=== PATIENT | male | born 1975 | race Caucasian/White ===

== ENCOUNTER 2020-01-21 13:24 | Emergency (ER) | payer OTHER, SELFPAY ==
[2020-01-21 13:29] VITALS: BP 153/84; PULSE 106; TEMP 36.7; O2SAT 99
[2020-01-21 13:39] VITALS: RESP 18
--- NOTE | 2020-01-21 13:45 | DI.US_ITS ---
EXAM: US LOWER EXTREMITY VENOUS RT CLINICAL HISTORY: Swelling, recent 18-hour plane ride. TECHNIQUE: Right lower extremity venous ultrasound performed using grayscale, color-flow, and spectr al Doppler analysis. COMPARISON: No exams were available for comparison FINDINGS: The right common femoral, femoral and popliteal veins demonstrate normal compressibility, augmentatio n, and color Doppler. The posterior tibial veins are patent.The saphenofemoral junction is unremarkab le. There is mild edema in the soft tissues. IMPRESSION: No DVT. DATA REPOSITORY:
--- NOTE | 2020-01-21 14:15 | ED.GENADUL_ITS ---
Discharge Plan Disposition Patient Disposition: HOME Condition: Stable Discharge Details Chief Complaint: Vascular Clinical Impression: Leg edema, right ED Provider: Sarbjit Vazquez Home Meds and New Rx's Prescriptions: No Action citalopram 10 mg Tablet 10 mg PO DAILY RF: 0 Discharge Instructions Additional Instructions: Ultrasound and blood work are unremarkable for DVT or other emergent process. I recommend elevation, rest, compression stockings as tolerated. Please watch for new or worsening symptoms and return to the ER for any concerns. Lastly, I do recommend establishing a local primary care provider and following up the next available appointment. Medical Decision Making 44-year-old gentleman presents with right lower leg swelling after traveling to and from [facility]. Primary concern is that of DVT. Patient appears well, nontoxic. Without chest pain or shortness of breath. Pulse of 106 in triage however pulse was 88 during my evaluation. No signs of erythema. Negative Homans sign. Will obtain routine laboratory values to assess WBCs as well as coags, will obtain ultrasound of the right lower extremity venous Doppler to rule out DVT. Patient comfortable with this plan Laboratory values and ultrasound unremarkable. Likely dependent edema without DVT or cellulitis. Imaging Data Radiologic Study: Imaging: Ultrasound Radiologist's impression: Doppler right lower extremity, negative for DVT. Edema present Lab Data Lab results reviewed: Yes I reviewed the patient's lab results. Lab results narrative: Laboratory Tests Range/Units 01/21/20 01/21/20 01/21/20 14:10 14:10 14:10 WBC (4.4-10.8) k/cumm 6.71 RBC (4.50-6.00) m/cumm 5.14 Hgb (13.5-17.5) g/dL 16.3 Hct (40.0-50.0) % 46.5 MCV (80-95) fL 90.5 MCH (27.0-33.0) pg 31.7 MCHC (32.0-36.0) g/dL 35.1 RDW (11.8-14.1) % 12.1 Plt Count (130-400) x1000/uL 294 MPV (8.0-11.0) fL 9.1 Immature Gran % % 0.1 Neutrophils % 65.4 Lymphocytes % 21.8 Monocytes % 11.9 Eosinophils % 0.7 Basophils % 0.1 Absolute Neutrophils (1.2-6.7) k/cumm 4.38 Absolute Lymphocytes (1.2-3.4) k/cumm 1.46 Absolute Monocytes (0.11-0.7) k/cumm 0.80 H Absolute Eosinophils (0.0-0.7) k/cumm 0.05 Absolute Basophils (0.0-0.2) k/cumm 0.01 PT (9.3-11.0) sec 10.1 INR (0.9-1.1) 1.0 APTT (21.0-31.4) sec 25.4 Sodium (136-145) mmol/L 140 Potassium (3.5-5.1) mmol/L 3.8 Chloride (98-107) mmol/L 103 Carbon Dioxide (21.0-32.0) mmol/L 24.9 Anion Gap (3-11) mmol/L 12.1 H BUN (7-18) mg/dL 15 Creatinine (0.70-1.30) mg/dL 0.80 Estimated GFR/1.73 m2 (mL/min/1.73m2) >= 60.00 Glucose (74-106) mg/dL 112 H Calcium (8.5-10.1) mg/dL 8.3 L Total Bilirubin (0.2-1.0) mg/dL 0.7 AST (15-37) U/L 30 ALT (16-63) U/L 67 H Alkaline Phosphatase (46-116) U/L 72 Total Protein (6.4-8.2) g/dL 7.7 Albumin (3.4-5.0) g/dL 4.3 HPI General Mode of arrival: ambulatory . Date/Time Provider Initiated Documentation: 01/21/20 13:47 . Limitations to Documentation: no limitations . Information obtained by: patient . HPI Narrative: 44-year-old gentleman presents with atraumatic right lower extremity swelling after having traveled to and from [place] over the past 14 days, then a secondary flight from [place]. The most recent travel was over this weekend. He denies any chest pain or shortness of breath. He denies any pain in his leg. Denies fever or rash. Primary concern is that of DVT Related Data Home Medications Medication Instructions Recorded Confirmed citalopram 10 mg PO DAILY 01/21/20 01/21/20 Allergies Allergy/AdvReac Type Severity Reaction Status Date / Time amoxicillin [From Augmentin] Allergy Unverified 01/21/20 13:30 clavulanic acid Allergy Unverified 01/21/20 13:30 [From Augmentin] General Stated Complaint: Vascular RODRIGUE: 3 Review of Systems Constitutional Constitutional: Denies fever(s) Cardiovascular Cardiovascular: Denies chest pain and Denies dyspnea Respiratory Respiratory: Denies cough and Denies dyspnea Musculoskeletal Musculoskeletal: Denies myalgias Integumentary/Breasts Skin/Breast: Denies rash [facility] Social History Smoking/Tobacco Use Status: Never Alcohol Intake: current Alcohol Intake frequency: a few times a week Drug use: Never Substance use type: does not use Do you feel safe at home: Yes Do you feel safe in your relationship?: Yes Exam Const General: cooperative, healthy appearing, comfortable and no acute distress Orientation: alert and awake HENMT Head: normal to inspection, normocephalic and atraumatic Mouth: moist mucous membranes Eyes Conjunctivae: conjunctivae normal Neck Neck: normal visual inspection, trachea midline and supple Resp Effort & Inspection: normal respiratory effort and able to speak in complete sentences Auscultation: clear to auscultation bilaterally Cardio Rate: regular rate Rhythm: regular rhythm Skin General skin exam: no rashes or lesions noted Neuro General: alert, awake, moves all extremities and no focal motor deficits Motor: muscle tone normal throughout Sensory Exam: no sensory deficits noted Extrem Right lower extremity: lower leg Details: non-pitting edema Details: 1+ (Negative Homans sign); no erythema and no tenderness Psych Appearance: grossly normal Mental Status: mental status grossly normal Course Vital Signs Vital signs: Vital Signs Temperature 36.7 C 01/21/20 13:29 Pulse 106 H 01/21/20 13:29 Blood Pressure 153/84 H 01/21/20 13:29 Pulse Oximetry 99 01/21/20 13:29 Temperature 36.7 C 01/21/20 13:29 Temperature Source Temporal Artery Scan 01/21/20 13:29 Pulse 106 H 01/21/20 13:29 Respiratory Rate 18 01/21/20 13:39 Respiratory Effort Non-Labored 01/21/20 13:39 Respiratory Depth Normal 01/21/20 13:39 Respiratory Pattern Normal 01/21/20 13:39 Blood Pressure 153/84 H 01/21/20 13:29 Blood Pressure Position Sitting 01/21/20 13:29 Pulse Oximetry 99 01/21/20 13:29 Oxygen Delivery Method Room Air 01/21/20 13:29 Oxygen Flow Rate 0 01/21/20 13:29 Pain Level 0 01/21/20 13:29
[2020-01-21 14:18] LABS: Abs Immature Grans 0.01 k/cumm (0.0-0.09); Absolute Basophil Count 0.01 k/cumm (0.0-0.2); Absolute Eosinophil Count 0.05 k/cumm (0.0-0.7); Absolute Lymphocyte Count 1.46 k/cumm (1.2-3.4); Absolute Neutrophil Count 4.38 k/cumm (1.2-6.7); Basophils % 0.1; Eosinophils % 0.7; HCT 46.5 % (40.0-50.0); HGB 16.3 g/dL (13.5-17.5); Immature Grans % 0.1 %; Lymphocytes % 21.8; Mean Corp. HGB Concentration 35.1 g/dL (32.0-36.0); Mean Corpuscular Hemoglobin 31.7 pg (27.0-33.0); Mean Corpuscular Volume 90.5 fL (80-95); Mean Platelet Volume 9.1 fL (8.0-11.0); Monocytes % 11.9; Neutrophils % 65.4; Platelet Count 294 x1000/uL (130-400); RBC 5.14 m/cumm (4.50-6.00); RBC Distribution Width 12.1 % (11.8-14.1); White Blood Cell Count 6.71 k/cumm (4.4-10.8)
[2020-01-21 14:38] LABS: PTT Activated 25.4 sec (21.0-31.4); Prothrombin Time 10.1 sec (9.3-11.0)
[2020-01-21 14:46] LABS: ALT 67 U/L (16-63); AST 30 U/L (15-37); Albumin 4.3 g/dL (3.4-5.0); Alkaline Phosphatase 72 U/L (46-116); Anion Gap 12.1 mmol/L (3-11); BUN 15 mg/dL (7-18); Bilirubin, Total 0.7 mg/dL (0.2-1.0); CO2 24.9 mmol/L (21.0-32.0); Calcium 8.3 mg/dL (8.5-10.1); Chloride 103 mmol/L (98-107); Glucose 112 mg/dL (74-106); Potassium 3.8 mmol/L (3.5-5.1); Sodium 140 mmol/L (136-145); Total Protein 7.7 g/dL (6.4-8.2)
== END 2020-01-21 15:05 | disposition home or self-care (01) ==
LOC: ER 15:18
PROVIDERS: Emergency Provider Physician Assistant
DX: R60.0 Localized edema (principal)
CPT/HCPCS: 36415; 80053; 99284; 85025; 85610; 85730; 93971

== ENCOUNTER 2020-12-18 13:29 | Outpatient (CLI) | payer OTHER, SELFPAY ==
[2020-12-20 12:45] LABS: COVID-19 RT-PCR UVMMC Result Negative (Negative)
== END 2020-12-18 13:30 | disposition home or self-care (01) ==
LOC: LBO 13:30
PROVIDERS: PCP Family Medicine; Visit Provider Family Medicine
DX: Z20.822 Contact with and (suspected) exposure to COVID-19 (principal)
CPT/HCPCS: U0003

== ENCOUNTER 2021-01-07 02:51 | Outpatient (CLI) | payer OTHER, SELFPAY ==
[2021-01-08 01:08] LABS: COVID-19 RT-PCR UVMMC Result Negative (Negative)
== END 2021-01-07 02:52 | disposition home or self-care (01) ==
LOC: LBO 02:53
PROVIDERS: PCP Family Medicine; Visit Provider Family Medicine
DX: Z20.822 Contact with and (suspected) exposure to COVID-19 (principal)
CPT/HCPCS: U0003

== ENCOUNTER 2021-03-02 01:25 | Outpatient (CLI) | payer OTHER, SELFPAY ==
--- NOTE | 2021-03-02 07:15 | DI.RAD_ITS ---
EXAM: XR KNEE LT 3V AP,LAT,JULI CLINICAL HISTORY: Worsening L knee pain,M25.562 TECHNIQUE: COMPARISON: CR XR KNEE RT 3V AP,LAT,JULI from 03/02/2021 FINDINGS: Three views were obtained. There appears to be mild thinning of the cartilaginous joint spaces of me dial and lateral tibiofemoral joints. Mild marginal osteophyte formation noted at all 3 joints of th e knee. There is a probable small knee joint effusion. No other bony or soft tissue abnormality see n. IMPRESSION: Mild degenerative changes as described above. RADIATION DOSE DELIVERED: Total DLP
--- NOTE | 2021-03-02 07:15 | DI.RAD_ITS ---
EXAM: XR KNEE RT 3V AP,LAT,JULI CLINICAL HISTORY: Known mensical tear, needs new film for orth appt,RT KNEE PAIN,S83.206A TECHNIQUE: COMPARISON: No exams were available for comparison FINDINGS: Three views were obtained. There appears to be mild narrowing of the medial and lateral tibiofemoral cartilaginous joint spaces. No gross joint effusion seen on the lateral view. No bony abnormality seen. IMPRESSION: Probable mild cartilaginous thinning of tibiofemoral joints, presumably on a degenerative basis.. RADIATION DOSE DELIVERED: Total DLP
== END 2021-03-02 01:45 ==
PROVIDERS: PCP Family Medicine; Visit Provider Family Medicine
DX: M25.562 Pain in left knee (principal); M17.12 Unilateral primary osteoarthritis, left knee; M25.561 Pain in right knee; M94.8X6 Other specified disorders of cartilage, lower leg
CPT/HCPCS: 73562

== ENCOUNTER 2021-03-25 01:12 | Outpatient (CLI) | payer OTHER, SELFPAY ==
--- NOTE | 2021-03-25 07:30 | DI.MRI_ITS ---
Exam(s) MR LOWER JOINT LT WO EXAM: MR LOWER JOINT LT WO CLINICAL HISTORY: KNEE PAIN, INTERNAL DERANGEMENT,M23.92 TECHNIQUE: Multiplanar multisequence MRI of the knee was performed. COMPARISON: CR XR KNEE LT 3V AP,LAT,JULI from 03/02/2021 FINDINGS: EFFUSION: There is a small-moderate size knee joint effusion. There is no Garnett cyst in the poplitea l fossa. MARROW:There is no evidence of fracture, bone contusion, nor osteochondral defects.. There are no si gnificant osseous lesions. PATELLOFEMORAL COMPARTMENT: The quadriceps tendon is intact. The patellar ligament is intact. There is thinning of the retropatellar cartilage most prominent at the mid and lateral facets. There is a tiny focus of intra-articular signal abnormality in the posterior aspect of mid patellar level, this measuring 2 millimeters. More prominent hyaline cartilage thinning is noted more inferiorly at the level of the inferior pole of patella. There are no patellar retinacular tears evident. CRUCIATE LIGAMENTS: The anterior cruciate ligament is intact.The posterior cruciate ligament is intac t. MEDIAL COMPARTMENT/MEDIAL MENISCUS: There is grade 2 signal in the posterior horn of the medial menis cus. This does not violate an articular surface and is consistent with some myxoid degeneration. No meniscocapsular separation. No mid no meniscal extrusion. The meniscal root is intact. However, t here is a significant focus of [place] cartilage thinning over the mid inner aspect of the femoral c ondyle over the posterior weight-bearing surface directly over the posterior horn medial meniscus. T here is no osteochondral defect nor subarticular intraosseous edematous level.. MEDIAL COLLATERAL LIGAMENT: Intact LATERAL COMPARTMENT/LATERAL MENISCUS: There is a complex tear of the posterior horn of the lateral me niscus which exhibits both horizontal and oblique components. Violates inferior articular surface. The tearing also involves the anterior horn. There is mild extrusion. No intrusion of meniscal subs tance. However, there is a partially septated degenerative meniscal cyst interposed between the torn lateral meniscus and the anterior aspect of the fibular collateral ligament and iliotibial band. Th is measures 2.4 cm craniocaudal by 1.7 cm AP by 0.7 cm wide.There is a no subarticular intraosseous e aries although there is a small degenerative subarticular cyst measuring 4 x 3 millimeters in the mid posterior aspect of the tibial plateau subjacent to the PCL insertion site. ILIOTIBIAL BAND: Intact LATERAL COLLATERAL LIGAMENT COMPLEX: The fibular collateral ligament is intact. The biceps femoris t endon is intact.There is small amount of fluid in the popliteus tendon sheath but no tear of this str ucture. IMPRESSION: 1. There is a complex tear of the lateral meniscus involving both the anterior posterior horns and as sociated with a degenerative meniscal cyst with measurements as above, this interposed between the to rn lateral meniscus and the lateral structures such as fibular collateral ligament and extending to c ontact the posterior aspect of the iliotibial band. There is mild hyaline cartilage loss over the ov erlying lateral femoral condyle and marginal osteophyte off the outer aspect and inner aspect of the condyle. 2. Although there is no tear of the medial meniscus, there is a significant focus of [place] cartila ge loss over the posterior weight-bearing surface of the medial femoral condyle overlying the posteri or horn of the medial meniscus (which itself is intact). 3. Cruciate and collateral ligaments are intact, as is the iliotibial band. 4. There is degenerative change in the [place] cartilage over the posterior patella, this thinning m ore evident inferiorly than superiorly. 5. There is a moderate-sized knee joint effusion. There is no Garnett cyst in the popliteal fossa. DATA REPOSITORY:
== END 2021-03-25 01:32 ==
PROVIDERS: PCP Family Medicine; Visit Provider Student in an Organized Health Care Education/Training Program
DX: M25.562 Pain in left knee (principal); M23.92 Unspecified internal derangement of left knee; M25.462 Effusion, left knee; S83.272A Complex tear of lateral meniscus, current injury, left knee, initial encounter; M94.8X6 Other specified disorders of cartilage, lower leg
CPT/HCPCS: 73721

== ENCOUNTER 2021-10-18 02:47 | Outpatient (CLI) | payer OTHER, SELFPAY ==
[2021-10-18 10:36] LABS: Source Nasal/Nares
[2021-10-18 14:19] LABS: COVID-19 PCR Negative (Negative)
== END 2021-10-18 02:48 | disposition home or self-care (01) ==
LOC: LBO 02:48
PROVIDERS: PCP Family Medicine; Visit Provider Student in an Organized Health Care Education/Training Program
DX: Z20.822 Contact with and (suspected) exposure to COVID-19 (principal)
CPT/HCPCS: 87635

== ENCOUNTER 2021-10-19 10:26 | Day surgery (SDC) | payer OTHER, SELFPAY ==
--- NOTE | 2021-10-19 07:42 | W.PM.DSUDISC ---
Discharge Plan Disposition Patient Disposition: HOME Condition: Good Discharge Details Reason For Visit: Left Knee Arthroscopy Attending Provider: Aleksandr Romero Primary Care Provider: Eduardo Chatman Home Meds and New Rx's Prescriptions: New hydrocodone-acetaminophen 5-325 mg tablet 1 tab PO Q6H PRNQty: 5 RF: 0 acetaminophen 500 mg capsule 1,000 mg PO Q8H PRN PRNQty: 30 RF: 0 Continued multivitamin Tablet 1 tab PO DAILY RF: 0 diclofenac sodium [Voltaren] 1 % gel 2 g topical QID PRN (Reason: knee pain) RF: 0 escitalopram oxalate 10 mg tablet 10 mg PO DAILY Qty: 90 RF: 3 lorazepam 0.5 mg tablet 0.5 mg PO DAILY PRN (Reason: anxiety) Qty: 30 RF: 0 ibuprofen 600 mg Tablet 600 DAILY RF: 0 Discharge Instructions Stand Alone Forms: Nick Knee Arthroscopy Equipment/Supplies: Partial Weight Bearing Crutches Activity:: Activity as Tolerated Remove Dressings/Wound Care:: 72 hours Shower/Bathe:: 72 hours Diet:: As Tolerated Discharge Orders Discharge Orders: Discharge Order (Routine); Ordered 10/19/21 Ordered By: Marita Centeno DS: Diagnosis Discharge Diagnosis (1) Tear of lateral meniscus of left knee: Status: Acute (2) Internal derangement of left knee: Status: Acute
[2021-10-19 10:46] VITALS: BP 144/98; PULSE 86; RESP 16; TEMP 36.4; O2SAT 97
--- NOTE | 2021-10-19 10:56 | ANES.PREOP_ITS ---
General Info Date of Service Date Performed: 10/19/21 Height: 6 ft 2.75 in Weight: 126.9 kg Body Mass Index (BMI): 35.2 Surgical Procedure: Operation Date: 10/19/21 13:10 Proposed Procedures Side Surgeon p LT KNEE ARTHROSCOPIC PARTIAL LATERAL MENISECTOMY Left Aleksandr Romero MD Meds Allergies and Home Medications Allergies Allergy/AdvReac Type Severity Reaction Status Date / Time amoxicillin [From Augmentin] Allergy Severe rash Verified 10/19/21 10:48 clavulanic acid Allergy Verified 10/19/21 10:48 [From Augmentin] Home Medication Medication Instructions Recorded escitalopram oxalate 10 mg tablet 10 mg PO DAILY #90 tab 06/01/20 lorazepam 0.5 mg tablet 0.5 mg PO DAILY PRN #30 tab 06/01/20 diclofenac sodium 1 % topical gel 2 g TOPICAL QID PRN 03/01/21 multivitamin 1 tab PO DAILY 03/01/21 ibuprofen 600 DAILY 10/19/21 Current Visit Medications: Current Medications Generic Name Dose Route Start Last Admin Trade Name Freq PRN Reason Stop Dose Admin Acetaminophen 650 mg 10/19/21 07:39 Acetaminophen 325 Mg Tab PO Q4H PRN PRN Ringer's Solution 1,000 mls @ 80 mls/hr 10/19/21 06:00 IV 11/17/21 23:59 INFUSION KRISH Cefazolin Sodium 3,000 mg/ 100 mls @ 200 mls/hr 10/19/21 06:00 Sodium Chloride IVPB 10/19/21 16:00 PREOP KRISH Ondansetron HCl 4 mg/ Sodium 52 mls @ 200 mls/hr 10/19/21 07:39 Chloride IVPB Q6H PRN PRN IV Miscellaneous Supplies 1 each 10/19/21 06:00 Iv Access IV 11/17/21 23:59 DIRECTED KRISH Oxycodone HCl 5 mg 10/19/21 07:39 Oxycodone 5 Mg Tab PO Q3H PRN PRN Pain Sodium Chloride 0 ml 10/19/21 06:00 Normal Saline Flush 10 Ml Syr IV 11/17/21 23:59 PRN PRN Sodium Chloride 0 ml 10/19/21 06:00 Normal Saline 10 Ml Vial IJ 11/17/21 23:59 DIRECTED PRN Sterile Water 0 ml 10/19/21 06:00 Water,Injection,Sterile 10 Ml Vial IJ 11/17/21 23:[address] [facility] Active Problems Active Problems: Problem Status Onset Code Tear of lateral meniscus of left knee S83.282A Localized osteoarthritis of left knee M17.12 Internal derangement of left knee M23.92 Right knee meniscal tear S83.206A Anxiety disorder F41.9 Medical History Active Problem List Tear of lateral meniscus of left knee (Acute) Localized osteoarthritis of left knee (Acute) Internal derangement of left knee (Acute) Right knee meniscal tear (Acute) Anxiety disorder (Acute) Surgical History Surgical History History of excision of pilonidal cyst Tenosynovitis of right hand following dog bite Tobacco Smoking/Tobacco Use Status: Never Passive smoking exposure: No Alcohol Alcohol Intake: current Alcohol intake frequency: 3 or more drinks per day Alcohol type: wine Substance Use Substance use: Never Substance use type: does not use Vital Signs and Lab Results Vital Signs Most Recent Vital Signs in EMR: Most Recent Vital Signs Temp Pulse Resp BP Pulse Ox 36.4 C L 86 16 144/98 H 97 10/19/21 10:46 10/19/21 10:46 10/19/21 10:46 10/19/21 10:46 10/19/21 10:46 Lab Results Blood Type / Crossmatch: No Data to Display Complete Blood Count: No Data to Display Complete Metabolic Panel: No Data to Display Liver Function Panel: No Data to Display Coagulation Panel: No Data to Display Cardiac Panel: No Data to Display Arterial Blood Gas: No Data to Display Venous Blood Gas: No Data to Display Pancreas Panel: No Data to Display Thyroid Panel: No Data to Display Infectious Disease: Coronavirus (COVID-19)(PCR) Negative (Negative) 10/18/21 10:01 10/18/21 Coronavirus 2019 Source Nasal/Nares 10/18/21 10:01 10/18/21 Blood Cultures: No Data to Display Toxicology Panel: No Data to Display Anesthesia Assessment and Plan Anesthesia History Personal History: No History of Anesthesia Complications Family History: No Family History of Anesthesia Complications Exercise Tolerance Exercise Tolerance: Metabolic Equivalents>4 Pertinent Negatives Pertinent Negatives: No Symptoms of GERD, No Major Cardiovascular Symptoms or Complaints and No Major Pulmonary Symptoms or Complaints Cardiac & Pulmonary Exam Cardiac Exam: Normal S1/S2 Heart Sounds Pulmonary Exam: Clear Bilateral Breath Sounds Implantable Cardiac Device Does patient have a Pacemaker or an ICD?: No Airway Exam Known Difficult Airway: No Mallampati Class: 2 Mouth Opening: Normal (> 3cm) Thyromental Distance: Greater than 3 cm Neck Range of Motion: Full ROM Neck Circumference: Normal Teeth Condition: Normal Dentition ASA Classification ASA Score: ASA 2 Emergency Case?: No NPO Status NPO Status: NPO Clears >2 hours, Solids >8 hours Anesthesia Plan Resuscitation Status: Full Code Anesthesia Technique: Spinal Anesthesia Airway Planned: Natural Airway Monitors Used: Standard Monitors
[2021-10-19 10:59] VITALS: BMI 35.2
[2021-10-19] MEDS: Lactated Ringers 1,000 ML 80 ML IV (11:25)
[2021-10-19] MEDS: ceFAZolin 3,000 MG in Normal Saline 100 ML 200 MG IVPB (12:09)
[2021-10-19] MEDS: Bupivacaine 0.5% Pres-Free 30 ML VIAL (12:57)
[2021-10-19 13:25] VITALS: BP 122/82; PULSE 78; RESP 16; TEMP 36.7; O2SAT 98
[2021-10-19 13:55] VITALS: BP 122/82; PULSE 62; RESP 16; TEMP 36.3; O2SAT 98
--- NOTE | 2021-10-19 14:42 | W.ANESPOSTOP ---
Postoperative Evaluation Date, Time and Location Date Performed: 10/19/21 Time Performed: 14:15 Patient Location: Day Surgery Unit Vital Signs Most Recent Imported Vital Signs: Most Recent Vital Signs Temp Pulse Resp BP Pulse Ox 36.7 C 78 16 122/82 98 10/19/21 13:25 10/19/21 13:25 10/19/21 13:25 10/19/21 13:25 10/19/21 13:25 Pain Score Most Recent Pain Score: Most Recent Pain Score Pain Level 0 10/19/21 13:25 Assessment Mental Status: Awake (Alert & Oriented to Patient Baseline) Airway and Respiratory Function: Patent airway with normal (patient baseline) respiratory exam Cardiovascular Function: Hemodynamically Stable Hydration Status: Adequately Hydrated Nausea & Vomiting: No Nausea or Vomiting Pain: Pt. Denies Any Pain Peripheral Nerve Block: Patient did not receive a nerve block
--- NOTE | 2021-10-19 22:57 | W.PM.OP ---
Date of service: 10/19/21 Time of Service: 13:57 Operative Note Operative Note DATE OF PROCEDURE: 10/19/21 PRE-OP DIAGNOSIS: Left Knee Lateral Meniscus Tear POST-OP DIAGNOSIS: same Grade IV Chondromalacia, Lateral Tibia PROCEDURE: Arthroscopic Partial Lateral Menisectomy, Left Knee SURGEON: Aleksandr Romero ANESTHESIA TYPE: Spinal Refer to Anesthesia Record ESTIMATED BLOOD LOSS: 0 PATHOLOGY: none sent TOURNIQUET TIME: 0 COMPLICATIONS: None Patient was transported to: PACU Patient's condition: stable Indications: I have seen Emery in clinic for symptoms of a meniscus tear. This was confirmed based on MRI and exam findings. Nonoperative measures were exhausted but disability and pain persisted. I discussed knee arthroscopy with meniscal intervention with the patient. I reviewed the risks of the procedure to include, but not limited to, bleeding, infection, pain, stiffness, damage to nerves or vessels, recurrence, blood clot. Despite these risks, the patient elected to proceed. Findings: A diagnostic arthroscopy was performed with the following findings: Suprapatellar Pouch: Moderate inflammation, No loose bodies Medial Compartment: No significnat mensical tearing, Intact meniscal root, Grade II chondromalacia of the posterior medial femur, No loose bodies Notch: ACL and PCL were intact Lateral Compartment: Complex tear of the lateral meniscus from posterior to anterior horn with a primary complete horizontal component, Intact meniscal root, Grade IV chondromalacia of the tibia and Grade III of the femur, mostly posterior, No loose bodies Patellofemoral Compartment: Grade II chondromalacia of the trochlea and patellar apex, [No apparent patellar maltracking] Procedure Description: Emery was greeted in the preoperative holding area where the correct side was identified and marked. The consent was reviewed with the patient and signed. The history and physical was updated. All questions were answered. He was taken back to the operating room. The patient was placed into the supine position on the operating room table. All bony prominences were well padded. Prophylactic antibiotics in the form of Cefazolin were administered. The left leg was then prepped with Chloraprep and draped in a standard fashion with stockinette and extremity drape. A timeout to confirm correct identity, side and site, procedure, allergies, anesthesia, and medical concerns was performed. The leg was placed into a pneumatic leg najera, [id number]. A standard lateral portal was made at the lateral border of the patella tendon in line with the inferior pole of the patella, soft spot. The skin and deep tissue was incised sharply and the blunt trochar was inserted atraumatically. A diagnostic arthroscopy was performed and the findings are listed above. The suprapatellar pouch had moderate inflammatory change. The patellofemoral articulation showed Grade II chondromalacia with good tracking. The lateral gutter had no loose bodies but small osteophytes and the medial gutter had no loose bodies but a large osteophyte. The knee was brought into some valgus stress in extension to open the medial compartment. A medial portal was made, localized by a spinal needle. The portal was created with an #11 blade through skin and capsule under direct visualization avoiding any meniscal injury. A probe was then inserted into the medial compartment. The medial compartment was fully inspected. The chondral surface of the tibia showed no significant chondromalacia and the surface of the femur showed Grade II/III chondromalacia over the posterior medial tibia. The medial meniscus had no meniscal tear. The notch was then inspected which showed an intact ACL and an intact PCL. The leg was then brought into a figure of 4 position. The lateral compartment was fully inspected with the arthroscope and a probe. The chondral surface of the lateral femur showed Grade II/III chondromalacia. The chondral surface of the lateral tibia showed Grade IV chondromalacia throughout the majority of the tibia. The lateral meniscus had a complex tear with a primary horizontal configuration with large displaced component extending from just lateral to the root around the entire meniscus just lateral to the anterior root. After evaluation, the meniscus was debrided down to a stable base using a series of biters and arthroscopic urmila. It was probed afterwards to confirm that the tear had been removed and the meniscus was stable. The arthroscope was brought back into the suprapatellar pouch and the leg was in full extension. The knee was thoroughly irrigated with the arthroscopic fluid on high flow and pressure. Inflow was stopped and excess fluid was removed. The wounds were closed with 4-0 Nylon. They were dressed with Xeroform, 4x4 gauze, ABD pad, Kerlix and an TERRY wrap. A cryo-cuff was applied. The patient tolerated the procedure well and was returned to the Same Day Surgery area in a stable condition suffering no known complication.
== END 2021-10-19 15:20 | disposition home or self-care (01) ==
PROVIDERS: PCP Family Medicine; Visit Provider Student in an Organized Health Care Education/Training Program
PROC: (CPT 29870; principal; 2021-10-19 13:00)
DX: M23.262 Derangement of other lateral meniscus due to old tear or injury, left knee (principal); M94.262 Chondromalacia, left knee; E78.5 Hyperlipidemia, unspecified
CPT/HCPCS: 29881; J0690; J1885; J2405

== ENCOUNTER 2025-08-07 04:16 | Outpatient (CLI) | payer OTHER, SELFPAY ==
[2025-08-07 09:02] LABS: ALT 37 U/L (16-63); AST 21 U/L (15-37); Albumin 3.9 g/dL (3.4-5.0); Alkaline Phosphatase 73 U/L (46-116); Anion Gap 10.2 mmol/L (3-11); BUN 14 mg/dL (7-18); Bilirubin, Total 0.9 mg/dL (0.2-1.0); CO2 26.8 mmol/L (21.0-32.0); Calcium 8.9 mg/dL (8.5-10.1); Calculated LDL 151 mg/dL (<100); Chloride 102 mmol/L (98-107); Cholesterol 228 mg/dL (<200); Estimated GFR 107.82 (mL/min/1.73m2); Glucose 114 mg/dL (74-106); HDL Cholesterol 36 mg/dL (>or=40); Potassium 4.0 mmol/L (3.5-5.1); Sodium 139 mmol/L (136-145); Total Protein 7.7 g/dL (6.4-8.2); Triglyceride 209 mg/dL (<150)
== END 2025-08-07 04:17 | disposition home or self-care (01) ==
LOC: LBO 04:16
PROVIDERS: PCP Family Medicine; Visit Provider Family Medicine
DX: E78.5 Hyperlipidemia, unspecified (principal)
CPT/HCPCS: 36415; 80053; 80061

== ENCOUNTER 2025-08-29 04:20 | Outpatient (CLI) | payer OTHER, SELFPAY ==
--- NOTE | 2025-08-29 11:20 | DI.RAD_ITS ---
Exam(s) RF BARIUM SWALLOW EXAM: RF BARIUM SWALLOW CLINICAL HISTORY: Hiccuping and coughing with swallowing,DYSPHAGIA,R13.10 TECHNIQUE: 2D and realtime digital imaging was performed. CONTRAST MATERIAL: Thick and thin barium and barium tablet were administered. COMPARISON: No exams were available for comparison FINDINGS: The PA and lateral chest films show normal heart size and clear lung alvarado. The lateral choir director view of the neck shows degenerative changes. Esophagus: The patient swallowed barium without difficulty. Noevidence for mucosal erosions. Nofold thickening. No mass is visible. There is significant narrowing of the distal esophagus at the GE junction. There is no evidence of ulceration or irregularity. The barium tablet did not pass through this area. There is mild dilatation of the distal esophagus. Motility: There is a normal primary stripping wave. Mild tertiary contractions were noted. There is no hiatal hernia. Nogastroesophageal reflux was observed during the exam. Stomach and small bowel are unremarkable as visualized. IMPRESSION: Smooth stricture at the GE junction. The barium tablet does not pass through. RADIATION DOSE DELIVERED: lucero Haines=76.6 mGy
[2025-08-29] MEDS: Barium Sulfate 700 MG TAB PO (11:26)
[2025-08-29] MEDS: Simethicone/Sod Bicarb/Cit Ac, 4 gram PACKET 1 PACKET PO (11:27)
[2025-08-29] MEDS: Barium Sulfate 60% W/V 355 ML BTL PO (11:28)
[2025-08-29] MEDS: Barium Sulfate 98% W/W 140 ML BTL PO (11:29)
== END 2025-08-29 04:40 ==
LOC: DI 04:20
PROVIDERS: PCP Family Medicine; Visit Provider Family Medicine
DX: R13.10 Dysphagia, unspecified (principal)
CPT/HCPCS: 74221; J3490

== ENCOUNTER 2025-10-03 08:26 | Day surgery (SDC) | payer OTHER, SELFPAY ==
--- NOTE | 2025-10-02 15:40 | PDOC.DSDIS_ITS ---
Date of service: 10/03/25 Discharge Plan Disposition Patient Disposition: Home Condition: Good Discharge Details Reason For Visit: EGD Attending Provider: Dylan Reece Primary Care Provider: Eduardo Chatman Home Meds and New Rx's Prescriptions: Continued multivitamin Tablet 1 tab PO DAILY lorazepam 0.5 mg tablet 0.5 mg PO DAILY PRN (Reason: anxiety) Qty: 30 0RF Patient Comments: not used in over a year atorvastatin [Lipitor] 40 mg tablet 40 mg PO QHS Qty: 90 3RF pantoprazole [Protonix] 40 mg tablet,delayed release (DR/EC) 40 mg PO DAILY Qty: 90 3RF escitalopram oxalate 10 mg tablet 10 mg PO DAILY Qty: 90 3RF ibuprofen 600 mg Tablet 600 mg PO DAILY acetaminophen 500 mg capsule 1,000 mg PO Q8H PRN PRNQty: 30 0RF Discharge Instructions Instructions: Dysphagia Additional Instructions: Emery, I hope you feel well after the EGD. I don't see a discreet stricture on the EGD. I did pass a balloon dilator to 2 cm just to see if it makes any difference. I also took a few biospies to see if there is any h pylori in your stomach as well as biopsies of the esophagus to look for eosiniphilic esophagitits. Those will take a week or so to result. Once I have that information, I will be in touch with any other recommendations. If you need anything in the meantime, please do not hesitate to ask at any point. 1. If tolerated, consume a soft, low fiber diet for 1-2 days. 2[address] Do not drive, drink alcohol, operate machinery, make critical decisions, or do activities that require coordination or balance for 24 hours. 3. You may experience a sore throat for 24 to 48 hours. You may use throat lozenges or gargle with warm salt water to relieve the discomfort. 4. Because air was put into your stomach during the procedure, you may experience some belching. 5. Go directly to the emergency room if you notice any of the following: Develop chills (warm to touch), or if you have a thermometer and your temperature is above 101 Difficulty breathing or difficultly swallowing Persistent vomiting Severe abdominal pain, other than gas cramps Severe chest pain Black, tarry stools Any bleeding – exceeding one tablespoon 6. Call your physician if the site where your intravenous was started becomes red, swollen, painful, and warm to touch. 7. Your physician has reviewed your pre-procedure medications. Please continue to take those medications as previously ordered. You will be given specific information/education regarding any changes to your medications before leaving. Stand Alone Forms: Anesthesia Discharge Inst., [facility] (DSU), Portal Information Activity:: Activity as Tolerated Diet:: As Tolerated Discharge Orders Discharge Orders: Discharge Order (Routine); Ordered 10/02/25 Ordered By: Dylan Reece DS: Diagnosis Discharge Diagnosis (1) Esophageal stricture: Status: Acute Asessment and Plan: Generally normal appearing EGD; follow up on biopsy results and maybe referral top [facility] [place]
--- NOTE | 2025-10-02 15:41 | W.PM.ENDDOP ---
Date of service: 10/03/25 Time of Service: 10:30 Endoscopy Report DATE OF PROCEDURE: 10/03/25 PRE-OP DIAGNOSIS: Dysphagia POST-OP DIAGNOSIS: same PROCEDURE: EGD with biopsies SURGEON: Dylan Reece ANESTHESIA TYPE: General:No Airway ESTIMATED BLOOD LOSS: 5 PATHOLOGY: other (Nondirected biopsies of gastric antrum and body, nondirected biopsies of esophagus) COMPLICATIONS: None DISPOSITION: same day INDICATIONS: Emery is a 50-year-old man who has been experiencing dysphagia. He underwent EGD that demonstrated retained barium pill at lower esophagus concerning for stricture PROCEDURE START TIME: 09:48 PROCEDURE END TIME: 10:01 FINDINGS: No evidence of discrete esophageal stricturing PROCEDURE DESCRIPTION: After the initiation of anesthesia, and with the assistance of a bite block, I advanced a standard gastroscope through the mouth past the hypopharynx and into the esophagus. Under the direct vision of the scope, I advanced down the esophagus towards the stomach. The upper, mid, and lower esophagus were all normal in course and caliber. The GE junction appeared closed. I am able to traverse this with ease. Once in the stomach, I performed retroflexion. I did not appreciate any signs of hiatal hernia. The remainder of the stomach appeared normal and healthy. I brought the camera back up to the GE junction. The Z-line was mostly regular, measured about 38 cm past the incisors. Again, the camera passes across this area with no difficulty. Given the findings of the barium swallow, I did think it was prudent to inflated balloon. Therefore, I passed 18 to 20 mm balloon dilator across the lower esophageal sphincter. Great care was taken to ensure that it was appropriately positioned. The balloon was inflated to 18 mm and held for short period of time. The balloon was then deflated, and the camera was passed across the GE junction. There is no evidence of any mucosal disruption. The camera was repositioned, and the balloon was brought up to 20 mm. This was also held before deflation. At this point, the balloon was withdrawn, and the camera was passed across this a few times. Again, I saw no evidence of any mucosal disruption that would support the diagnosis of a true esophageal stricture. I did perform some cold forceps nondirected biopsies of the gastric antrum and body to rule out Helicobacter pylori as a source of his dysphagia. There was minimal bleeding from those sites. I brought the camera back up along the length of the esophagus 1 last time. I saw no other evidence of any esophageal pathology. I did perform some nondirected biopsies of the esophagus to rule out microscopic esophagitis as a source of the symptoms. I then passed the camera back down into the stomach and emptied it completely before removal.
[2025-10-03 08:45] VITALS: BP 140/85; PULSE 72; RESP 16; TEMP 36.6; O2SAT 98
[2025-10-03] MEDS: Lactated Ringers 1,000 ML 80 ML IV (08:51)
[2025-10-03 09:36] VITALS: BMI 36.5
--- NOTE | 2025-10-03 09:36 | ANES.PREOP_ITS ---
General Info Date of Service Date Performed: 10/03/25 Height: 6 ft 3 in Weight: 132.6 kg Body Mass Index (BMI): 36.5 Surgical Procedure: Operation Date: 10/03/25 09:50 Proposed Procedure Side Surgeon p Gastroscopy with Possible Dilation Dylan Reece MD Actual Procedure Side Surgeon p Gastroscopy with Possible Dilation Not Applicable Dylan Reece MD Pre-Op Diagnosis Post-Op Diagnosis EGD Meds Allergies and Home Medications Allergies Allergy/AdvReac Type Severity Reaction Status Date / Time amoxicillin (From Augmentin) Allergy Severe rash Verified 10/03/25 08:49 clavulanic acid (From Allergy Rash Verified 10/03/25 08:49 Augmentin) Home Medication Medication Instructions Recorded lorazepam 0.5 mg tablet 0.5 mg PO DAILY PRN anxiety #30 06/01/20 tabs multivitamin 1 tab PO DAILY 03/01/21 acetaminophen 500 mg capsule 1,000 mg (2 x 500 mg) PO Q8H PRN 10/19/21 PRN #30 caps ibuprofen 600 mg tablet 600 mg PO DAILY 10/19/21 escitalopram oxalate 10 mg tablet 10 mg PO DAILY #90 t abs 09/05/25 pantoprazole 40 mg tablet,delayed 40 mg PO DAILY #90 t abs 09/15/25 release (Protonix) atorvastatin 40 mg tablet (Lipitor) 40 mg PO QHS #90 t abs 09/26/25 Current Visit Medications: Current Medications Generic Name Dose Route Start Last Admin Trade Name Freq PRN Reason Stop Dose Admin Ringer's Solution 1,000 mls @ 80 mls/hr 10/03/25 06:00 10/03/25 08:51 IV 10/03/25 23:59 80 mls/hr INFUSION KRISH Administration IV Miscellaneous Supplies 1 each 10/03/25 06:00 Iv Access IV 10/03/25 23:59 DIRECTED KRISH Sodium Chloride 0 ml 10/03/25 06:00 Normal Saline Flush 10 Ml Syr IV 10/03/25 23:59 PRN PRN Sodium Chloride 0 ml 10/03/25 06:00 Normal Saline 10 Ml Vial IJ 10/03/25 23:59 DIRECTED PRN Sterile Water 0 ml 10/03/25 06:00 Water,Injection,Sterile 10 Ml Vial IJ 10/03/25 23:59 DIRECTED PRN PFSH Active Problems Active Problems: Problem Status Onset Code Esophageal stricture Acute K22.2 Dysphagia Acute R13.10 Snoring Acute R06.83 Folliculitis Acute L73.9 Hyperlipidemia Acute E78.5 Tear of lateral meniscus of left knee Acute S83.282A Localized osteoarthritis of left knee Acute M17.12 Internal derangement of left knee Acute M23.92 Right knee meniscal tear Acute S83.206A Anxiety disorder Acute F41.9 Surgical History Surgical History H/O esophagogastroduodenoscopy History of excision of pilonidal cyst Tenosynovitis of right hand following dog bite Tobacco Smoking/Tobacco Use Status: Never Passive smoking exposure: No Alcohol Alcohol Intake: current Alcohol intake frequency: a few times a month Alcohol type: wine Substance Use Substance use: Never Substance use type: does not use Vital Signs and Lab Results Vital Signs Most Recent Vital Signs in EMR: Most Recent Vital Signs Temp Pulse Resp BP Pulse Ox 36.6 C 72 16 140/85 98 10/03/25 08:45 10/03/25 08:45 10/03/25 08:45 10/03/25 08:45 10/03/25 08:45 Anesthesia Assessment and Plan Anesthesia History Personal History: No History of Anesthesia Complications Family History: No Family History of Anesthesia Complications Exercise Tolerance Exercise Tolerance: Metabolic Equivalents>4 Pertinent Negatives Pertinent Negatives: No Symptoms of GERD Cardiac & Pulmonary Exam Cardiac Exam: Normal S1/S2 Heart Sounds Pulmonary Exam: Clear Bilateral Breath Sounds Implantable Cardiac Device Does patient have a Pacemaker or an ICD?: No Airway Exam Known Difficult Airway: No Mallampati Class: 2 Mouth Opening: Normal (> 3cm) Thyromental Distance: Greater than 3 cm Neck Range of Motion: Full ROM Neck Circumference: Normal Teeth Condition: Normal Dentition ASA Classification ASA Score: ASA 2 Emergency Case?: No NPO Status NPO Status: NPO Clears >2 hours, Solids >8 hours Anesthesia Plan Resuscitation Status: Full Code Anesthesia Technique: General Anesthesia Airway Planned: Natural Airway Monitors Used: Standard Monitors
--- NOTE | 2025-10-03 09:56 | STOM_PTH ---
PATIENT: Emery Maldonado LOC: [facility] U#:[id number] AGE/SX: 50/M ROOM: RE10/03/[address]: Dylan Reece MD : 1975 BED: DIS: 10/03/2025 SPEC #: [id number] RECD: 10/03/25 12:48 STATUS: TAYLOR RE #: [id number] NAYA: 10/03/25 09:[address]: Dylan Reece DEPT: Surgical Specimen RECD BY: Laura Cheung ENTERED: 10/03/25 12:50 SP TYPE: STOMACH OTHR DR: Eduardo Chatman DO Tissues: 1 - STOMACH BIOPSY 2 - STOMACH BIOPSY 3 - ESOPHAGUS BIOPSY Procedures: GROSS AND MICRO LEVEL 4 Comments: [id number]
[2025-10-03 10:05] VITALS: BP 112/80; PULSE 73; RESP 16; TEMP 36.2; O2SAT 95
--- NOTE | 2025-10-03 10:14 | W.ANESPOSTOP ---
Postoperative Evaluation Date, Time and Location Date Performed: 10/03/25 Time Performed: 10:14 Patient Location: Day Surgery Unit Vital Signs Most Recent Imported Vital Signs: Most Recent Vital Signs Temp Pulse Resp BP Pulse Ox 36.2 C L 73 16 112/80 95 10/03/25 10:05 10/03/25 10:05 10/03/25 10:05 10/03/25 10:05 10/03/25 10:05 Pain Score Most Recent Pain Score: Most Recent Pain Score Pain Level 0 10/03/25 10:05 Assessment Mental Status: Awake (Alert & Oriented to Patient Baseline) Airway and Respiratory Function: Patent airway with normal (patient baseline) respiratory exam Cardiovascular Function: Hemodynamically Stable Hydration Status: Adequately Hydrated Nausea & Vomiting: No Nausea or Vomiting Pain: Pt. Denies Any Pain Peripheral Nerve Block: Patient did not receive a nerve block
[2025-10-03 10:37] VITALS: BP 129/83; PULSE 62; RESP 16; TEMP 36.3; O2SAT 98
== END 2025-10-03 10:49 | disposition home or self-care (01) ==
LOC: SUR 08:26
PROVIDERS: PCP Family Medicine; Visit Provider Surgery
PROC: 0D758ZZ Dilation of Esophagus, Via Natural or Artificial Opening Endoscopic (ICD-10-PCS; CPT 43249; principal; 2025-10-03 09:45)
DX: K22.2 Esophageal obstruction (principal); R13.10 Dysphagia, unspecified; K31.9 Disease of stomach and duodenum, unspecified; K22.89 Other specified disease of esophagus
CPT/HCPCS: 43249; 43239; 88305; J2003; J2704